=== PATIENT | female | born 1955 | race Caucasian/White ===

== ENCOUNTER 2017-10-20 20:02 | Emergency (ER) | payer MEDICAID ==
[2017-10-20 20:56] LABS: PLATELET COUNT 219 10^3/uL (150-400)
[2017-10-20] MEDS ORDERED: PHENAZOPYRIDINE HCL 200 MG TAB PO ONE (21:31)
[2017-10-20] MEDS ORDERED: CEPHALEXIN 500 MG CAP PO ONE (21:32)
--- NOTE | 2017-10-20 21:44 | EDPHY ---
H & P Time Seen by Provider: 10/20/17 20:26 HPI/ROS: CHIEF COMPLAINT: Abdominal pain, dysuria HISTORY OF PRESENT ILLNESS: 61-year-old female presents to the emergency department with dysuria and abdominal pain over last few days. The patient states that she has a history of frequent kidney stones. She thinks that this feels different than kidney stones that she has had in the past. She has not had a bladder infection over 20 years. No back pain. No flank pain. She feels nauseous although no vomiting. She had little appetite this evening. She describes dysuria but also pain at the urethra even just with sitting and walking. She denies hematuria. No reported trauma. She felt like she was developing chills this evening. REVIEW OF SYSTEMS: Constitutional: Subjective chills. Eyes: No double or blurry vision. ENT: No sore throat. Respiratory: No cough, no shortness of breath. Cardiac: No chest pain. Gastrointestinal: As above. No vomiting or diarrhea. Genitourinary: No dysuria. Musculoskeletal: No neck or back pain. Skin: No rashes. Neurological: No headache. Past Medical/Surgical History: Kidney stones, vegan diet Social History: Smoking Status: Never smoked Physical Exam: General Appearance: Alert, no distress. 37.2. Nontoxic appearing. Eyes: Pupils equal and round. Extraocular motions are all intact. ENT: Mouth: Mucous membranes moist. Respiratory: No wheezing, rhonchi, or rales, lungs are clear to auscultation. Cardiovascular: Regular rate and rhythm. Gastrointestinal: Abdomen is soft and nontender, no masses, no rebound or guarding, bowel sounds normal. No CVA tenderness bilaterally. Neurological: Alert and oriented x 3, cranial nerves II through XII grossly intact Skin: Warm and dry, no rashes. Musculoskeletal: Nontender to palpate along the cervical, thoracic or lumbar spine. Neck is supple. Extremities: Full range of motion and no peripheral edema. Psychiatric: Patient is oriented X 3, there is no agitation. Constitutional: Initial Vital Signs Temperature (C) 37.2 C 10/20/17 20:06 Heart Rate 70 10/20/17 20:06 Respiratory Rate 16 10/20/17 20:06 Blood Pressure 122/63 H 10/20/17 20:06 O2 Sat (%) 98 10/20/17 20:06 O2 Delivery Mode Room Air Allergies/Adverse Reactions: fenugreek Allergy (Verified 10/20/17 20:10) progesterone Allergy (Verified 10/20/17 20:10) Home Medications: Medication Instructions Recorded Cephalexin [Keflex] 500 mg PO QID #28 cap 10/20/17 Phenazopyridine HCl [Pyridium] 200 mg PO Q8PRN PRN #6 tab 10/20/17 Medical Decision Making ED Course/Re-evaluation: 61-year-old female presents to the emergency department with dysuria and lower abdominal pain. The patient has not had a urinary tract infection in several years. She does have a history of kidney stones although she states that this feels much different. She has no flank pain. She felt nauseous although no vomiting. She had subjective fevers. Urinalysis revealed 25-50 white blood cells, 10-15 red blood cells and trace bacteria. Urine cultures pending. The patient was given Pyridium as well as doors of oral Keflex. She was not vomiting. She tolerated this well. I did offer CT scan to evaluate for possible concurrent kidney stone although again the patient has no flank pain. She has had numerous kidney stones which she is able to pass on her own and she feels that this is different. The patient was told to return to the emergency department she developed fever, vomiting, worsening abdominal or back pain, or if she felt worse in any way. Differential Diagnosis: Including but not limited to urinary tract infection, pyelonephritis, kidney stone, acute appendicitis, sepsis - Data Points Laboratory Results: Laboratory Results 10/20/17 20:05 10/20/17 20:05 Microbiology Results: MICROBIOLOGY 10/20/17 20:30 Urine,Clean Catch Urine Culture - Preliminary Gram Neg Ferm[employer] L[employer] Medications Given: Discontinued Medications Cephalexin HCl (Keflex) 500 mg PO EDNOW ONE PRN Reason: Protocol Stop: 10/20/17 21:33 Last Admin: 10/20/17 21:46 Dose: 500 mg Phenazopyridine HCl (Pyridium) 200 mg PO EDNOW ONE Stop: 10/20/17 21:32 Last Admin: 10/20/17 21:46 Dose: 200 mg Departure - Departure Disposition: Home, Routine, Self-Care Clinical Impression: Urinary tract infection Qualifiers: Urinary tract infection type: site unspecified Hematuria presence: without hematuria Qualified Code(s): N39.0 - Urinary tract infection, site not specified Condition: Good Instructions: Cephalexin (By mouth), Phenazopyridine (By mouth), Urinary Tract Infection in Women (ED) Additional Instructions: Keflex 500 mg 4 times daily for 1 week. Call [phone] for the results of your urine culture in 48 hr. Pyridium as needed for symptoms of burning and frequency with urination. Ibuprofen 400 mg every 8 hr as needed for pain. Return to the emergency department if you develop back pain, fever, vomiting, or if you feel worse in any way. Referrals: CATHY HERNANDEZ [Other] - 1-2 days without fail Prescriptions: Cephalexin [Keflex] 500 mg PO QID #28 cap Phenazopyridine HCl [Pyridium] 200 mg PO Q8PRN PRN #6 tab PRN Reason: P.r.n. Dysuria
[2017-10-20 23:13] VITALS: BP 96/60
== END 2017-10-20 23:15 | disposition home or self-care (01) ==
DX: N39.0 Urinary tract infection, site not specified (principal); B96.20 Unspecified Escherichia coli [E. coli] as the cause of diseases classified elsewhere